=== PATIENT | male | born 1965 | race Caucasian/White ===

== ENCOUNTER 2017-05-29 13:43 | Emergency (ER) | payer BC, OTHER ==
[~2017-05-29] VITALS: Ht 182.9 cm; Wt 88.5 kg
[~2017-05-29 13:43] MED LIST: FLOXIN OTI0.3 %/5 M1 OT; IBUPROFEN 600600 M1 PO; NORCO 5-325 TA1 EACH PO
[2017-05-29] MEDS ORDERED: ALLEGRA-D 12 H1 EAC1 PO (14:11)
[2017-05-29] MEDS ORDERED: TESSALON PERLE100 MG PO (14:11)
[2017-05-29] MEDS ORDERED: AFRIN15 ML NASAL (14:11)
== END 2017-05-29 14:21 | disposition home or self-care (01) ==
LOC: ER 13:43
DX: J06.9 Acute upper respiratory infection, unspecified (principal); Z90.49 Acquired absence of other specified parts of digestive tract